=== PATIENT | male | born 1960 | race Caucasian/White ===

== ENCOUNTER 2016-12-03 03:27 | Emergency (ER) | payer SELFPAY ==
--- NOTE | 2016-12-04 18:58 | ER ---
ADMIT: 12/03/2016 RM/LOC: ER [facility] MR#: [id number] [facility] [id number] BRITTADEYSI LORA Ruiz [address] [place] [address] Emergency Room Report SEX: M AGE: 56 : 1960 DATE: 12/03/2016 The patient is a 56-year-old male, in police custody for DUI. Denies any other problems, released in police custody. Xavier Cox MD/ devon JOB #: [id number] CC: Xavier Cox MD, Attending Physician Vee Pradhan MD, Family Physician Vee Pradhan MD
== END 2016-12-03 03:46 | disposition home or self-care (01) ==
LOC: ER 03:27
DX: F10.129 Alcohol abuse with intoxication, unspecified (principal); F17.210 Nicotine dependence, cigarettes, uncomplicated; Z88.2 Allergy status to sulfonamides